=== PATIENT | female | born 1995 | race Caucasian/White ===

== ENCOUNTER 2017-07-15 23:36 | Outpatient (CLI) | payer OTHER ==
[~2017-07-15] VITALS: Ht 157.5 cm; Wt 82.6 kg
[~2017-07-15 23:36] MED LIST: CIPR500T4 PO; ONDA4TAB35 PO
[2017-07-16 00:43] VITALS: BP 114/70; PULSE 81; RESP 18; Ht 157.5 cm; Wt 82.6 kg
--- NOTE | 2017-07-16 02:19 | PN ---
Triage Information Date/Time Reason for visit: Uterine contractions Weeks of Gestation 34 weeks and 5 days of gestation /Para Diabetes: none Hypertention: none Objective Vital Signs Date Time Temp Pulse Resp B/P Pulse Ox O2 Delivery O2 Flow Rate FiO2 07/16/17 00:43 98.2 81 18 114/70 Room Air Heart Rate: 140's Heart Rate Comments NST is reactive Contractions: >10 Minutes Apart Exam cervix closed per nurse Disposition: Discharge Assessment/Plan Patient is not in labor kick counts were reviewed with the patient Patient was instructed to follow-up with her own DIRECTOR OF THERAPY SERVICES in 2-3 days YG CARLOS MD Jul 16, 2017 02:19
--- NOTE | 2017-07-16 05:38 | TRIAGE ---
OB Triage Datetime Report Generated by CPN: 07/16/2017 05:37 Datetime: 07/16/2017 02:05 Stage of : OB Triage Labor Evaluation Frequency: None noted or palpted. Abdomen soft to palpation. Monitor Mode: External Resting Tone Vansant: Relaxed Heart Rate FHR Baseline Rate: 125 Monitor Mode: External US Variability: Moderate 6-25 bpm Accelerations: 15X15 Decelerations: None Category: Category I Datetime: 07/16/2017 01:56 Stage of : OB Triage Datetime: 07/16/2017 01:31 Stage of : OB Triage Labor Evaluation Frequency: Irregular Monitor Mode: External Duration (sec)2399: 40-80 Quality: Mild Pattern: Normal: <= 5 Contractions in 10 Minutes Resting Tone Vansant: Relaxed Heart Rate FHR Baseline Rate: 130 Monitor Mode: External US FHR Baseline Changes: No Baseline Change Variability: Moderate 6-25 bpm Accelerations: 15X15 Decelerations: None Category: Category I Datetime: 07/16/2017 01:10 Monitor Mode: Palpation Resting Tone Vansant: Relaxed Datetime: 07/16/2017 00:59 Vaginal Exam Dilatation (cms): 0.0 Effacement (%): 0 Station: -3 Exam By: FOREIGN Harris Vaginal Bleeding: None Cervix, Consistency: Firm Cervix, Position: Posterior Datetime: 07/16/2017 00:38 Stage of : OB Triage Datetime: 07/16/2017 00:31 Stage of : OB Triage Labor Evaluation Frequency: Occasional Monitor Mode: External Duration (sec)2399: 50-60 Quality: Mild Pattern: Normal: <= 5 Contractions in 10 Minutes Resting Tone Vansant: Relaxed Heart Rate FHR Baseline Rate: 130 Monitor Mode: External US Variability: Moderate 6-25 bpm Accelerations: 15X15 Decelerations: None Category: Category I Datetime: 07/16/2017 00:06 Stage of : OB Triage Assessment Type: Triage Maternal Assessment Level of Consciousness: Fully Conscious DTR's/Clonus: DTRs 2+; No Clonus Headache: Denies Blurred Vision: No Respiratory Effort: Unlabored; Regular Rhythm; Equal Expansion Breath Sounds, Left: Clear and Equal Breath Sounds, Right: Clear and Equal Nausea/Vomiting: Denies RUQ Epigastric Pain: Denies Lower Extremities Edema: None Degree: None Upper Extremities Edema: None Degree: None Facial Edema: None Temperature Route: Oral Fall Risk Assessment History of Falling: (0) No Secondary Diagnosis: (0) No Ambulatory Aid: (0) Bedrest/Nurse Assist IV Therapy: (0) No Gait: (0) Normal/Bedrest/Immobile Mental Status: (0) Oriented to Own Ability Fall Score: 0 Fall Risk Score Definition: No Risk: No action required Pain Assessment Pain Scale: 5 Pain Presence: Intermittent Pain Type: Cramping; Contraction Pain Location: Abdomen; Back Pain Relief Measures: Comfort Measures Datetime: 07/15/2017 23:58 Monitor Mode: External Contraction Comments: Vansant applied Datetime: 07/15/2017 23:57 Heart Rate FHR Baseline Rate: 140 Monitor Mode: External US Comments: EFM applied Datetime: 07/15/2017 23:55 Time of Arrival: 07/16/2017 23:32 EGA: 34.5 Arrived By: Wheelchair Arrived From: Home Chief Complaint: Regular uc's all day with lower abdominal pressure _ pain Movement: Present Contractions: Regular Contractions: q5mins Rupture of Membranes: Denies Vaginal Bleeding: None Vaginal Discharge: Present Recent Sexual Intercouse: Denies Abdominal Trauma: Not Applicable Patient Complaints: Contractions; Cramping; Back Pain Time Provider Notified: 07/16/2017 00:38 Provider Notified: Initial Plan: EFJonah x2
== END 2017-07-16 02:10 | disposition home or self-care (01) ==
LOC: OBT 23:36 → L-D 23:37 → OBT 07-16 02:10
PROVIDERS: ATTEND Obstetrics & Gynecology
DX: O62.9 Abnormality of forces of labor, unspecified (principal); Z3A.34 34 weeks gestation of pregnancy
CPT/HCPCS: G0463